=== PATIENT | male | born 1975 | race Caucasian/White ===

== ENCOUNTER 2016-10-17 17:15 | Emergency (ER) | payer BC ==
[~2016-10-17] VITALS: Ht 177.8 cm; Wt 88.6 kg
[~2016-10-17 17:15] MED LIST: ATENOLOL; ATIVAN 0.50.5 MG/TAB PO; ATIVAN 1MG T1 MG/TAB PO; FOLIC ACID 11 MG/TA1 PO; KEPPRA 500MG500 MG PO; KEPPRA500 MG PO; LEXAPRO20 MG PO; NORCO 325 MG-51 TAB PO; PAXIL 30MG30 MG PO; PERCOCET 325 MG1 TA2 PO; PHENERGAN 25 TA25 MG PO; PROTONIX20 MG PO; RANITIDINE150 MG PO; SEROQUEL 1100 MG/TAB PO; VALIUM 10MG10 MG/TAB PO; VALIUM 5MG T5 MG/TAB PO; VITAMIN B-100 MG/TAB PO; XANAX 1MG1 MG PO; ZOFRAN 4MG T4 MG/TAB PO
[2016-10-17 17:22] VITALS: TEMP 98.1
[2016-10-17 18:21] LABS: BASO # 0.1 (0.0-0.2); BASO % 0.5 % (0.0-2.0); EOS # 0.8 (0.0-0.7); EOS % 6.4 % (0-4.0); GRAN # 4.9 (1.4-6.5); GRAN % 37.5 % (42.2-75.2); HEMATOCRIT 44.9 % (42.0-52.0); HEMOGLOBIN 15.7 g/dl (13.5-18.0); LYMPH # 5.9 (1.2-3.4); LYMPH % 45.8 % (20.0-51.0); MEAN CELL VOLUME 90 fl (80.0-100.0); MEAN CORPUSCULAR HEMOGLOBIN 31 pg (27.0-31.0); MEAN CORPUSCULAR HGB CONC 35 g/dl (33.0-37.0); MEAN PLATELET VOLUME 9.9 fl (7.4-10.4); MONO # 1.2 (0.1-0.6); MONO % 9.4 % (1.7-9.3); PLATELET COUNT 251 K/mm3 (130-400); RED BLOOD COUNT 5.01 M/mm3 (4.20-5.60); REDCELL DISTRIBUTION WIDTH-CV 13.3 % (11.5-14.5)
[2016-10-17 18:30] LABS: ADJUSTED CALCIUM 8.7 mg/dL (8.4-10.2); ALBUMIN 4.3 gm/dL (3.5-5.0); BILIRUBIN,TOTAL 0.6 mg/dL (0.0-1.0); CALCIUM 8.9 mg/dL (8.4-10.2); CREATININE, serum 0.85 mg/dL (0.66-1.25); POTASSIUM 4.2 mmol/L (3.4-5.0)
[2016-10-17] MEDS ORDERED: VALIUM 5MG T5 MG/TAB PO (20:37)
[2016-10-17] MEDS ORDERED: NORCO 325 MG-51 TAB PO (20:37)
[2016-10-17] MEDS ORDERED: AMOXICILLIN 8751 TAB PO (20:37)
[2016-10-17 21:05] VITALS: BP 139/94; PULSE 93
[2017-03-24] MEDS ORDERED: ATIVAN 1MG T1 MG/TAB PO (17:39)
== END 2016-10-17 21:05 | disposition home or self-care (01) ==
LOC: COL.ER 17:15
PROVIDERS: Emergency Medicine
DX: S61.251A Open bite of left index finger without damage to nail, initial encounter (principal); S01.511A Laceration without foreign body of lip, initial encounter; W54.0XXA Bitten by dog, initial encounter; Y92.89 Other specified places as the place of occurrence of the external cause; F10.20 Alcohol dependence, uncomplicated
CPT/HCPCS: J0295; J1170; J3360; J7030

== ENCOUNTER 2016-10-20 07:36 | Emergency (ER) | payer BC ==
[~2016-10-20] VITALS: Ht 180.3 cm; Wt 90.0 kg
[~2016-10-20 07:36] MED LIST changes: +AMOXICILLIN 8751 TAB PO
[2016-10-20 07:39] VITALS: BP 142/74; TEMP 99.2
[2016-10-20] MEDS ORDERED: VALIUM 5MG T5 MG/TAB PO (08:36)
[2016-10-20] MEDS ORDERED: ZOFRAN ODT4 MG PO (08:36)
[2016-10-20 09:09] VITALS: PULSE 86
[2016-10-21] MEDS ORDERED: KEPPRA 500MG500 MG PO (20:53)
[2016-10-21] MEDS ORDERED: LIBRIUM 10M10 MG/CAP PO (21:08)
== END 2016-10-20 09:27 | disposition home or self-care (01) ==
LOC: COL.ER 07:36
DX: F10.230 Alcohol dependence with withdrawal, uncomplicated (principal); S61.251D Open bite of left index finger without damage to nail, subsequent encounter; W54.0XXD Bitten by dog, subsequent encounter; R56.9 Unspecified convulsions
CPT/HCPCS: C9113; J2060; J2405; J7030

== ENCOUNTER 2016-10-21 19:20 | Emergency (ER) | payer BC ==
[~2016-10-21] VITALS: Ht 180.3 cm; Wt 89.5 kg
[~2016-10-21 19:20] MED LIST changes: +ZOFRAN ODT4 MG PO
[2016-10-21 19:24] VITALS: TEMP 97.1
[2016-10-21 19:59] LABS: BASO % 0.3 % (0.0-2.0); EOS # 0.3 (0.0-0.7); EOS % 3.1 % (0-4.0); GRAN # 4.2 (1.4-6.5); GRAN % 38.3 % (42.2-75.2); HEMATOCRIT 43.7 % (42.0-52.0); HEMOGLOBIN 15.2 g/dl (13.5-18.0); LYMPH # 5.5 (1.2-3.4); LYMPH % 51.1 % (20.0-51.0); MEAN CELL VOLUME 91 fl (80.0-100.0); MEAN CORPUSCULAR HEMOGLOBIN 32 pg (27.0-31.0); MEAN CORPUSCULAR HGB CONC 35 g/dl (33.0-37.0); MEAN PLATELET VOLUME 10.1 fl (7.4-10.4); MONO # 0.7 (0.1-0.6); MONO % 6.9 % (1.7-9.3); PLATELET COUNT 207 K/mm3 (130-400); RED BLOOD COUNT 4.82 M/mm3 (4.20-5.60); REDCELL DISTRIBUTION WIDTH-CV 13.6 % (11.5-14.5); WHITE BLOOD COUNT 10.8 K/mm3 (4.8-10.8)
[2016-10-21 20:07] LABS: ADJUSTED CALCIUM 8.5 mg/dL (8.4-10.2); ALBUMIN 4.2 gm/dL (3.5-5.0); BILIRUBIN,TOTAL 0.5 mg/dL (0.0-1.0); CALCIUM 8.7 mg/dL (8.4-10.2); CREATININE, serum 0.76 mg/dL (0.66-1.25); POTASSIUM 3.9 mmol/L (3.4-5.0); TOTAL PROTEIN 6.6 gm/dL (6.4-8.2)
[2016-10-21 20:23] LABS: PROLACTIN 9.6 ng/mL (3.7-17.9)
[2016-10-21] MEDS ORDERED: KEPPRA 500MG500 MG PO (20:53)
[2016-10-21] MEDS ORDERED: LIBRIUM 10M10 MG/CAP PO (21:08)
[2016-10-21 22:20] VITALS: BP 122/96; PULSE 88
[2017-03-24] MEDS ORDERED: ATIVAN 1MG T1 MG/TAB PO (17:39)
== END 2016-10-21 22:20 | disposition home or self-care (01) ==
LOC: COL.ER 19:20
PROVIDERS: Emergency Medicine
DX: G40.909 Epilepsy, unspecified, not intractable, without status epilepticus (principal); T42.6X6A Underdosing of other antiepileptic and sedative-hypnotic drugs, initial encounter; F10.220 Alcohol dependence with intoxication, uncomplicated; Y90.8 Blood alcohol level of 240 mg/100 ml or more
CPT/HCPCS: J1953; J3360; J7030

== ENCOUNTER 2017-02-21 16:36 | Emergency (ER) | payer BC ==
[~2017-02-21] VITALS: Ht 177.8 cm; Wt 84.1 kg
[~2017-02-21 16:36] MED LIST changes: +LIBRIUM 10M10 MG/CAP PO
[2017-02-21] MEDS ORDERED: ATIVAN 1MG T1 MG/TAB PO (17:25)
[2017-02-21 17:37] VITALS: BP 122/86; PULSE 102; TEMP 97.6
[2017-03-24] MEDS ORDERED: ATIVAN 1MG T1 MG/TAB PO (17:39)
== END 2017-02-21 17:38 | disposition home or self-care (01) ==
LOC: COL.ER 16:36
DX: F10.239 Alcohol dependence with withdrawal, unspecified (principal); F32.9 Major depressive disorder, single episode, unspecified

== ENCOUNTER 2017-02-25 11:01 | Inpatient (IN) | payer BC ==
[~2017-02-25] VITALS: Ht 177.8 cm; Wt 86.4 kg
[2017-02-25 11:42] LABS: BASO # 0.1 (0.0-0.2); BASO % 0.5 % (0.0-2.0); EOS # 0.3 (0.0-0.7); EOS % 2.7 % (0-4.0); GRAN # 5.6 (1.4-6.5); GRAN % 54.2 % (42.2-75.2); HEMATOCRIT 45.3 % (42.0-52.0); HEMOGLOBIN 15.9 g/dl (13.5-18.0); LYMPH # 3.6 (1.2-3.4); LYMPH % 34.3 % (20.0-51.0); MEAN CELL VOLUME 89 fl (80.0-100.0); MEAN CORPUSCULAR HEMOGLOBIN 31 pg (27.0-31.0); MEAN CORPUSCULAR HGB CONC 35 g/dl (33.0-37.0); MEAN PLATELET VOLUME 9.7 fl (7.4-10.4); MONO # 0.8 (0.1-0.6); MONO % 8.1 % (1.7-9.3); PLATELET COUNT 238 K/mm3 (130-400); RED BLOOD COUNT 5.11 M/mm3 (4.20-5.60); REDCELL DISTRIBUTION WIDTH-CV 13.2 % (11.5-14.5); WHITE BLOOD COUNT 10.4 K/mm3 (4.8-10.8)
[2017-02-25 11:51] LABS: ADJUSTED CALCIUM 8.7 mg/dL (8.4-10.2); ALBUMIN 4.3 gm/dL (3.5-5.0); BILIRUBIN,TOTAL 0.4 mg/dL (0.0-1.0); CALCIUM 8.9 mg/dL (8.4-10.2); CREATININE, serum 0.66 mg/dL (0.66-1.25); POTASSIUM 3.9 mmol/L (3.4-5.0); TOTAL PROTEIN 7.1 gm/dL (6.4-8.2)
[2017-02-25 12:30] LABS: AMPHETAMINE URINE NEGATIVE; BARBITURATES URINE NEGATIVE; BENZODIAZEPINES URINE NEGATIVE; BUPRENORPHINE URINE NEGATIVE; METHADONE URINE NEGATIVE; OPIATES URINE NEGATIVE; OXYCODONE URINE NEGATIVE; PHENCYCLIDINE URINE NEGATIVE; PROPOXYPHENE URINE NEGATIVE; THC CANNABINOIDS URINE NEGATIVE
[2017-02-25 14:35] VITALS: BP 115/76; PULSE 84; TEMP 98.2
[2017-02-25 16:31] VITALS: BP 138/74; PULSE 79; TEMP 97.2
[2017-02-25 16:55] VITALS: BP 123/79; PULSE 77; TEMP 97.9
[2017-02-25 17:46] LABS: MAGNESIUM 1.9 mg/dL (1.6-2.3)
[2017-02-25 18:37] LABS: INR 1.1 (0.8-3.0); PROTHROMBIN TIME 11.8 SECONDS (9.7-12.8)
[2017-02-25 18:40] LABS: PARTIAL THROMBOPLASTIN TIME 29.6 SECONDS (26.0-37.0)
[2017-02-25 20:03] VITALS: BP 127/69; PULSE 100; TEMP 98.2
[2017-02-25 22:07] VITALS: BP 127/70; PULSE 94; TEMP 97.6
[2017-02-26] VITALS (11 sets, daily range): BP systolic 128–147; BP diastolic 71–91; PULSE 50–90; TEMP 97.2–98.7
[2017-02-26 03:33] LABS: PH 8 (5-8); SQUAMOUS EPITHELIAL None Seen /hpf; URINE APPEARANCE Clear; URINE BACTERIA None Seen /hpf; URINE BILIRUBIN Negative (NEGATIVE); URINE BLOOD Negative (NEGATIVE); URINE COLOR Yellow; URINE GLUCOSE Negative (NEGATIVE); URINE KETONE Negative (NEGATIVE); URINE RBC 0-2 /hpf; URINE UROBILINOGEN Negative (NEGATIVE); URINE WBC 0-2 /hpf
[2017-02-26 07:06] LABS: BASO % 0.2 % (0.0-2.0); EOS # 0.3 (0.0-0.7); EOS % 2.6 % (0-4.0); GRAN # 5.1 (1.4-6.5); GRAN % 51.7 % (42.2-75.2); HEMATOCRIT 38.1 % (42.0-52.0); HEMOGLOBIN 13.2 g/dl (13.5-18.0); LYMPH # 3.5 (1.2-3.4); LYMPH % 35.8 % (20.0-51.0); MEAN CELL VOLUME 89 fl (80.0-100.0); MEAN CORPUSCULAR HEMOGLOBIN 31 pg (27.0-31.0); MEAN CORPUSCULAR HGB CONC 35 g/dl (33.0-37.0); MEAN PLATELET VOLUME 9.8 fl (7.4-10.4); MONO # 0.9 (0.1-0.6); MONO % 9.4 % (1.7-9.3); PLATELET COUNT 179 K/mm3 (130-400); RED BLOOD COUNT 4.28 M/mm3 (4.20-5.60); REDCELL DISTRIBUTION WIDTH-CV 13.2 % (11.5-14.5); WHITE BLOOD COUNT 9.8 K/mm3 (4.8-10.8)
[2017-02-26 07:25] LABS: CALCIUM 8.8 mg/dL (8.4-10.2); CREATININE, serum 0.64 mg/dL (0.66-1.25); POTASSIUM 3.9 mmol/L (3.4-5.0)
[2017-02-27] VITALS (13 sets, daily range): BP systolic 122–147; BP diastolic 66–100; PULSE 52–85; TEMP 97–98.9
[2017-02-27 10:58] LABS: BASO % 0.2 % (0.0-2.0); EOS # 0.2 (0.0-0.7); EOS % 2.1 % (0-4.0); GRAN # 5.4 (1.4-6.5); GRAN % 58.3 % (42.2-75.2); HEMATOCRIT 38.8 % (42.0-52.0); HEMOGLOBIN 13.8 g/dl (13.5-18.0); LYMPH # 2.9 (1.2-3.4); LYMPH % 31.8 % (20.0-51.0); MEAN CELL VOLUME 87 fl (80.0-100.0); MEAN CORPUSCULAR HEMOGLOBIN 31 pg (27.0-31.0); MEAN CORPUSCULAR HGB CONC 36 g/dl (33.0-37.0); MONO # 0.7 (0.1-0.6); MONO % 7.4 % (1.7-9.3); PLATELET COUNT 184 K/mm3 (130-400); RED BLOOD COUNT 4.46 M/mm3 (4.20-5.60); REDCELL DISTRIBUTION WIDTH-CV 13.1 % (11.5-14.5); WHITE BLOOD COUNT 9.2 K/mm3 (4.8-10.8)
[2017-03-24] MEDS ORDERED: ATIVAN 1MG T1 MG/TAB PO (17:39)
== END 2017-02-27 22:45 | disposition home or self-care (01) | DRG 897 ==
LOC: COL.ER 11:01 → MEDICAL 13:28
PROVIDERS: Emergency Medicine; Nurse Practitioner Family
DX: F10.229 Alcohol dependence with intoxication, unspecified (principal); E44.0 Moderate protein-calorie malnutrition; R10.13 Epigastric pain; K29.20 Alcoholic gastritis without bleeding; K59.00 Constipation, unspecified; F32.9 Major depressive disorder, single episode, unspecified; F41.9 Anxiety disorder, unspecified; F17.210 Nicotine dependence, cigarettes, uncomplicated; Y90.8 Blood alcohol level of 240 mg/100 ml or more
CPT/HCPCS: 99223-AI; 99232-AI; J1650; J2060; J2405; J3360; J3480; J7030

== ENCOUNTER 2020-02-17 15:05 | Outpatient (RCR) | payer OTHER | END 2020-05-03 | disposition home or self-care (01) | LOC: WSOH | DX: M25.561 Pain in right knee (principal); Y99.0 Civilian activity done for income or pay | CPT/HCPCS: 24774; L1810 ==

== ENCOUNTER 2021-10-03 19:05 | Emergency (ER) | payer SELFPAY ==
[~2021-10-03] VITALS: Ht 177.8 cm; Wt 84.1 kg
[2021-10-03 19:11] VITALS: TEMP 98.2
[2021-10-03 21:33] VITALS: BP 150/89; PULSE 82
== END 2021-10-03 21:37 | disposition short-term general hospital (02) ==
LOC: COL.ER 19:05
DX: M54.6 Pain in thoracic spine (principal); M54.50 Low back pain, unspecified; R32 Unspecified urinary incontinence; F17.200 Nicotine dependence, unspecified, uncomplicated

== ENCOUNTER 2021-11-24 20:04 | Observation (INO) | payer SELFPAY ==
[~2021-11-24] VITALS: Ht 177.8 cm; Wt 84.0 kg
[2021-11-24] MEDS ORDERED: NEURONTIN300 MG/CAP PO (20:21)
[2021-11-24 21:31] LABS: BASO % 0.1 % (0.0-2.0); GRAN # 7.3 K/mm3 (1.4-6.5); GRAN % 61.6 % (42.2-75.2); HEMATOCRIT 49.7 % (42.0-52.0); HEMOGLOBIN 18.3 g/dl (13.5-18.0); LYMPH # 3.4 K/mm3 (1.2-3.4); LYMPH % 28.2 % (20.0-51.0); MEAN CELL VOLUME 86 fl (80.0-100.0); MEAN CORPUSCULAR HEMOGLOBIN 32 pg (27-31); MEAN CORPUSCULAR HGB CONC 37 g/dl (33.0-37.0); MEAN PLATELET VOLUME 9.4 fl (7.4-10.4); MONO # 1.2 K/mm3 (0.1-0.6); MONO % 9.8 % (1.7-9.3); PLATELET COUNT 249 K/mm3 (130-400); RED BLOOD COUNT 5.78 M/mm3 (4.20-5.60); REDCELL DISTRIBUTION WIDTH-CV 13.3 % (11.5-14.5)
[2021-11-24 22:04] LABS: ALBUMIN 3.8 gm/dL (3.5-5.0); BILIRUBIN,TOTAL 0.7 mg/dL (0.2-1.2); CALCIUM 8.5 mg/dL (8.4-10.2); CREATININE, serum 0.73 mg/dL (0.72-1.25); POTASSIUM 3.7 mmol/L (3.5-4.5); TOTAL PROTEIN 6.9 gm/dL (6.2-8.1)
[2021-11-25] VITALS (8 sets, daily range): BP systolic 110–148; BP diastolic 68–85; PULSE 80–115; TEMP 97.8–99.1
--- NOTE | 2021-11-25 00:45 | NUR ---
PT. TO ROOM 327 FROM ER FOR ALCHOHOL SEIZURES. ADMISSION ASSESSMENT COMPLETE. PT. ORIENTED TO ROOM. A&O WITH VISIBLE TREMORS. PT. REPORT LAST DRINK OF VODKA WAS 3 DAYS AGO. ICE WATER PROVIDED TO PT. DR. BOYLE CURRENTLY WITH PT.
--- NOTE | 2021-11-25 05:58 | NUR ---
PT. SPENT AN UNEVENTFUL NIGHT RESTING IN BED. PT. EXHIBITED GROSS TREMORS. VALIUM WAS GIVEN PER PROTOCOL. COMPLAINING OF PAIN 7/10 IN NECK FROM A SURGERY 8 WEEKS PREVIOUS. REPORTS NAUSEA COMES IN WAVES BUT HAS NONE PRESENTLY. PT. EXPRESSED DESIRE TO SLEEP. ROOM WAS DARKENED AND PT. WAS LEFT TO SLEEP. WILL CONTINUE TO MONITOR.
[2021-11-25 06:57] LABS: BASO % 0.2 % (0.0-2.0); EOS % 0.2 % (0.0-4.0); GRAN # 8.2 K/mm3 (1.4-6.5); GRAN % 62.7 % (42.2-75.2); HEMATOCRIT 42.3 % (42.0-52.0); LYMPH # 3.7 K/mm3 (1.2-3.4); LYMPH % 27.9 % (20.0-51.0); MEAN CELL VOLUME 89 fl (80.0-100.0); MEAN CORPUSCULAR HEMOGLOBIN 31 pg (27-31); MEAN CORPUSCULAR HGB CONC 35 g/dl (33.0-37.0); MEAN PLATELET VOLUME 9.9 fl (7.4-10.4); MONO # 1.2 K/mm3 (0.1-0.6); MONO % 8.8 % (1.7-9.3); PLATELET COUNT 225 K/mm3 (130-400); RED BLOOD COUNT 4.77 M/mm3 (4.20-5.60); REDCELL DISTRIBUTION WIDTH-CV 13.4 % (11.5-14.5)
[2021-11-25 07:09] LABS: ALBUMIN 3.3 gm/dL (3.5-5.0); BILIRUBIN,TOTAL 1.1 mg/dL (0.2-1.2); CALCIUM 8.6 mg/dL (8.4-10.2); CREATININE, serum 0.67 mg/dL (0.72-1.25); POTASSIUM 3.7 mmol/L (3.5-4.5); TOTAL PROTEIN 5.6 gm/dL (6.2-8.1)
[2021-11-25 07:32] LABS: HEMOGLOBIN 14.9 g/dl (13.5-18.0)
[2021-11-25 10:06] LABS: COLLECTION METHOD CATHETER
[2021-11-25 10:12] LABS: MUCOUS Present (NOT PRESENT); PH 6 (5-8); SQUAMOUS EPITHELIAL None Seen /hpf (0-10); URINE APPEARANCE Clear (CLEAR/HAZY); URINE BACTERIA None Seen /hpf (NONE SEEN); URINE BILIRUBIN Negative (NEGATIVE); URINE BLOOD Negative (NEGATIVE); URINE COLOR Yellow (YELLOW); URINE GLUCOSE Negative (NEGATIVE); URINE KETONE Negative (NEGATIVE); URINE LEUKOCYTE ESTERASE Negative (NEGATIVE); URINE NITRATE Negative (NEGATIVE); URINE PROTEIN(semi-quant) Negative (NEGATIVE); URINE RBC 0-2 /hpf (0-2); URINE UROBILINOGEN Negative (NEGATIVE)
--- NOTE | 2021-11-25 10:20 | NUR ---
Received report from operations supervisor 2nd shift. Patient in bed with observable tremors. Patient reports moments of hallucinations, reports seeing black specks floating in air around him. Patient reports pain 8/10, requests ibuprofen. CIWA score of 13. Administered valium. Assessment performed. Patient denies any events of vomiting or diarrhea. UA collected. AM meds administered. Patient resting in bed with call light near.
[2021-11-25 10:36] LABS: TRICYCLIC ANTIDEPRESS URINE NEGATIVE
--- NOTE | 2021-11-25 13:03 | NUR ---
Ej met with the pt to complete intake. The pt lives at home with his life partner. The pt reports confidentialty and does not want anyone to know he is in the hospital. See chart* The pt reports no DPOA-HC and is not interested in obtaining one. Pt reports no use of DME and independnent on all ADLS. PCP is Gloria Askew and gets medications from [facility] and has no trouble obtaining them. No other needs stated at this time. sw to await further recommendations and follow up. DC: Home,by taxi on him.
[2021-11-26] VITALS (7 sets, daily range): BP systolic 113–135; BP diastolic 63–91; PULSE 61–91; TEMP 97.4–98.6
--- NOTE | 2021-11-26 03:54 | NUR ---
Pt has been cooperative thus far this shift. Pt on seizure precautions. Pt is currently being assessed for alcohol detox Q2 with decreasing score; 0200 score is a 3. Pt has been asking for ativan frequently throughout the shift, this nurse educated pt on ativan protocol. Pt tolerating PO intake well, no complaints of N/V at this time. All other needs met at this time, call light within reach.
--- NOTE | 2021-11-26 06:06 | NUR ---
Pt requested tylenol for pain management. This nurse educated pt that tylenol would affect LFT's, which are already elevated. Pt expressed understanding. Pt has ibuprofen PRN, this was given to help with pain; pt complaining of L shoulder pain. All of needs met at this time, call light within reach.
[2021-11-26 09:10] LABS: PROTHROMBIN TIME 11.3 SECONDS (9.7-12.8)
[2021-11-26 09:20] LABS: BASO % 0.1 % (0.0-2.0); EOS % 0.1 % (0.0-4.0); GRAN # 4.9 K/mm3 (1.4-6.5); GRAN % 66.9 % (42.2-75.2); HEMATOCRIT 40.4 % (42.0-52.0); HEMOGLOBIN 14.3 g/dl (13.5-18.0); LYMPH # 1.9 K/mm3 (1.2-3.4); LYMPH % 26.1 % (20.0-51.0); MEAN CELL VOLUME 89 fl (80.0-100.0); MEAN CORPUSCULAR HEMOGLOBIN 32 pg (27-31); MEAN CORPUSCULAR HGB CONC 35 g/dl (33.0-37.0); MEAN PLATELET VOLUME 10.1 fl (7.4-10.4); MONO # 0.5 K/mm3 (0.1-0.6); MONO % 6.5 % (1.7-9.3); PLATELET COUNT 147 K/mm3 (130-400); RED BLOOD COUNT 4.52 M/mm3 (4.20-5.60); REDCELL DISTRIBUTION WIDTH-CV 13.3 % (11.5-14.5)
[2021-11-26 09:23] LABS: ALBUMIN 3.1 gm/dL (3.5-5.0); BILIRUBIN,TOTAL 1.2 mg/dL (0.2-1.2); CALCIUM 8.6 mg/dL (8.4-10.2); CREATININE, serum 0.74 mg/dL (0.72-1.25); MAGNESIUM 1.8 mg/dL (1.6-2.6); POTASSIUM 3.5 mmol/L (3.5-4.5); TOTAL PROTEIN 5.5 gm/dL (6.2-8.1)
--- NOTE | 2021-11-26 10:09 | NUR ---
[place]: No adventism preference Situation: Housing Director stopped by room on rounds Background: PT is rajeev from [place], moved to [place] a few years ago Assessment: Pt had no needs right now Recommendation: Housing Director will follow up as needed
--- NOTE | 2021-11-26 10:46 | NUR ---
Patient off floor for MRI. Tele notified.
--- NOTE | 2021-11-26 11:45 | NUR ---
Received report from shift supervisor. Patient alert and oriented x4. VSS. Patient here for ETOH, seizure unwitnessed. CIWA scores are trending down from 3 to 2. Patient sent for MRI. Assessment performed. AM meds administered. Call light within reach.
[2021-11-26] MEDS ORDERED: FOLIC ACID 11 MG/TA1 PO (12:40)
[2021-11-26] MEDS ORDERED: THIAMINE 1100 MG/TAB PO (12:40)
[2021-11-26] MEDS ORDERED: KEPPRA 500MG500 MG PO (12:43)
--- NOTE | 2021-11-26 14:23 | NUR ---
Discharge instructions provided, patient education given. IV DC'd. Patient denies any further questions or concerns. Patient escorted out via wheelchair for [employer] ride to home.
--- NOTE | 2021-11-26 14:47 | NUR ---
Personnel Officer received a call from RN-CM that patient is ready for discharge but reported he has no where to go. SW met with patient who reports he plans to return home at time of discharge, however feels he is too weak and needs more time in the hospital. [place] followed up with Hospitalist who feels patient is ready for discharge today. SW provided taxi voucher for patient who advised he had no way to get home. Discharge plan: Home
== END 2021-11-26 14:20 | disposition home or self-care (01) ==
LOC: COL.ER 20:04 → SURG 23:21
PROVIDERS: Emergency Medicine; Physician Assistant
DX: F10.939 Alcohol use, unspecified with withdrawal, unspecified (principal); R74.01 Elevation of levels of liver transaminase levels; D72.829 Elevated white blood cell count, unspecified; D75.1 Secondary polycythemia; F17.210 Nicotine dependence, cigarettes, uncomplicated; Y90.8 Blood alcohol level of 240 mg/100 ml or more; Z63.0 Problems in relationship with spouse or partner; Z63.72 Alcoholism and drug addiction in family
CPT/HCPCS: C9113; G0378; J2060; J3360; J3411; J7120

== ENCOUNTER 2023-07-25 07:56 | Emergency (ER) | payer SELFPAY ==
[~2023-07-25] VITALS: Ht 177.8 cm; Wt 79.5 kg
[~2023-07-25 07:56] MED LIST changes: +NEURONTIN300 MG/CAP PO; +THIAMINE 1100 MG/TAB PO
[2023-07-25 08:02] VITALS: TEMP 97.7
[2023-07-25 09:17] LABS: BASO % 0.1 % (0.0-2.0); GRAN # 4.1 K/mm3 (1.4-6.5); GRAN % 52.3 % (42.2-75.2); HEMATOCRIT 44.3 % (42.0-52.0); HEMOGLOBIN 15.7 g/dl (13.5-18.0); LYMPH # 2.6 K/mm3 (1.2-3.4); LYMPH % 33.8 % (20.0-51.0); MEAN CELL VOLUME 93 fl (80.0-100.0); MEAN CORPUSCULAR HEMOGLOBIN 33 pg (27-31); MEAN CORPUSCULAR HGB CONC 35 g/dl (33.0-37.0); MEAN PLATELET VOLUME 10.3 fl (7.4-10.4); MONO % 13.2 % (1.7-9.3); PLATELET COUNT 291 K/mm3 (130-400); RED BLOOD COUNT 4.75 M/mm3 (4.20-5.60); REDCELL DISTRIBUTION WIDTH-CV 13.8 % (11.5-14.5)
[2023-07-25 09:27] LABS: ALANINE AMINOTRANSFERASE 15 U/L (0-55); ALBUMIN 3.5 gm/dL (3.5-5.0); ALKALINE PHOSPHATASE 57 U/L (40-150); ANION GAP 12 mmol/L (7-16); AST,SGOT 19 U/L (5-34); BILIRUBIN,TOTAL 0.3 mg/dL (0.2-1.2); BLOOD UREA NITROGEN 7 mg/dL (9-21); CALCIUM 8.7 mg/dL (8.4-10.2); CARBON DIOXIDE 24 mmol/L (22-29); CHLORIDE 105 mmol/L (98-107); CREATININE, serum 0.81 mg/dL (0.72-1.25); GLUCOSE 91 mg/dL (70-99); POTASSIUM 3.8 mmol/L (3.5-4.5); SODIUM 141 mmol/L (136-145); TOTAL PROTEIN 6.5 gm/dL (6.2-8.1)
[2023-07-25] MEDS ORDERED: Metoprolol Tartrate 25 MG TAB PO ONE (09:30)
[2023-07-25 09:35] LABS: MAGNESIUM 1.6 mg/dL (1.6-2.6)
[2023-07-25] MEDS ORDERED: LOPRESSOR 225 MG/TAB PO (09:41)
[2023-07-25 09:50] LABS: TSH w REFLEX 3.057 uIU/mL (0.350-4.940)
[2023-07-25 09:53] LABS: TROPONIN-I < 0.010 ng/mL (0.00-0.033)
[2023-07-25 10:12] VITALS: BP 113/79; PULSE 76
== END 2023-07-25 10:15 | disposition home or self-care (01) ==
LOC: COL.ER 07:56
PROVIDERS: Emergency Medicine
DX: I49.3 Ventricular premature depolarization (principal); F17.210 Nicotine dependence, cigarettes, uncomplicated